=== PATIENT | male | born 1975 | race Caucasian/White ===

== ENCOUNTER → 2016-09-11 | Outpatient (CLI) | payer BC ==
--- NOTE | 2016-09-11 08:29 | DIAGNOSTIC IMAGING REPORT ---
CHEST 2 VIEWS ROUTINE CLINICAL HISTORY: Fever. COMPARISON STUDY: No previous studies for comparison. FINDINGS: There is moderate right mid and lower lung airspace opacity with obscuration of the right heart border. Lateral view demonstrates right middle lobe opacity. There may be a trace right pleural effusion. No cavitation is identified. Left lung is clear. Cardiac size is normal. Mediastinal contours are normal. IMPRESSION: Moderate right middle lobe consolidation consistent with pneumonia. Possible trace right pleural effusion. Post treatment radiographs are recommended to ensure resolution. Electronically signed by: Femi Mancilla M.D. 09/11/2016 8:28 AM Dictated Date/Time: 09/11/2016 8:26 AM
[2016-09-11 11:10] LABS: BASO % 0.6 %; BASO ABS # 0.02 K/uL (0-0.2); COMPLETE YES; EOS % 3.8 %; HEMATOCRIT 34.9 % (42-52); IG% 0.3 %; LYMPH ABS # 0.47 K/uL (1.2-3.4); MEAN CELL VOLUME 87.9 fL (80-100); MEAN CORPUSCULAR HEMOGLOBIN 31.7 pg (25-34); MEAN CORPUSCULAR HGB CONC 36.1 g/dl (32-36); MEAN PLATELET VOLUME 9.8 fL (7.4-10.4); MONO % 12.4 %; NEUT % 67.9 %; PLATELET COUNT 186 K/uL (130-400); RED BLOOD COUNT 3.97 M/uL (4.7-6.1); WHITE BLOOD COUNT 3.14 K/uL (4.8-10.8)
[2016-09-11 11:23] LABS: ALB/GLOB RATIO 0.6 (0.9-2); ALKALINE PHOSPHATASE 80 U/L (45-117); ALT/SGPT 85 U/L (12-78); AST/SGOT 63 U/L (15-37); BLOOD UREA NITROGEN 11 mg/dl (7-18); BUN/CREATININE RATIO 9.8 (10-20); CALCIUM 9.3 mg/dl (8.5-10.1); CARBON DIOXIDE 30 mmol/L (21-32); CHLORIDE 100 mmol/L (98-107); GLUCOSE 126 mg/dl (70-99); POTASSIUM 3.6 mmol/L (3.5-5.1); SODIUM 137 mmol/L (136-145)
[2016-09-11 13:32] LABS: LYME DISEASE AB IGG NEG (NEG); LYME DISEASE AB IGM NEG (NEG)
== END | disposition home or self-care (01) ==
LOC: C.LABBC 07:48
PROVIDERS: ATTEND Physician Assistant
DX: R50.9 Fever, unspecified (principal)